=== PATIENT | female | born 1990 | race Caucasian/White ===

== ENCOUNTER → 2021-03-01 14:37 | Outpatient (CLI) | payer SELFPAY ==
[2021-03-01 15:17] LABS: Hematocrit 39.6 % (37-47); Hemoglobin 12.4 g/dL (12.0-15.0)
[2021-03-01 15:36] LABS: Thyroid Stim Hormone (TSH) 1.49 uIU/mL (0.358-3.74)
== END ==
PROVIDERS: Visit Provider Obstetrics & Gynecology
DX: N92.0 Excessive and frequent menstruation with regular cycle (principal); R53.81 Other malaise; Z12.4 Encounter for screening for malignant neoplasm of cervix
CPT/HCPCS: 36415; 84443; 85014; 85018; 88175; G0145